=== PATIENT | female | born 1995 | race Caucasian/White ===

== ENCOUNTER 2016-05-29 18:46 | Emergency (ER) | payer OTHER ==
--- NOTE | 2016-05-29 19:50 | EDPHY ---
H & P Time Seen by Provider: 05/29/16 18:56 HPI/ROS: CHIEF COMPLAINT: right hand pain HISTORY OF PRESENT ILLNESS: 20-year-old female presents emergency department complaining of right hand pain. Patient reports a part of her metal bed frame fell onto her hand 4 hours prior to arrival. She has pain with movement and palpation. She is [id number], denies numbness or tingling in her hand. Patient reports no wrist pain, she says she had a scaphoid fracture on that same wrist 5 years ago. She denies other complaints. Smoking Status: Current every day smoker Physical Exam: GEN: Awake, alert, oriented, no acute distress RESP: nl resp effort MSK: Right hand with tenderness to palpation in thenar eminence, mild tenderness to UCL insertion. No snuffbox tenderness, no distal radius or ulnar styloid tenderness, cap refill less than 2 seconds, sensation intact to light touch, no swelling or ecchymosis. SKIN: No break in skin Constitutional: Initial Vital Signs Temperature (C) 37.2 C 05/29/16 18:47 Heart Rate 107 H 05/29/16 18:47 Respiratory Rate 15 05/29/16 18:47 Blood Pressure 111/74 05/29/16 18:47 O2 Sat (%) 94 05/29/16 18:47 O2 Delivery Mode Room Air Allergies/Adverse Reactions: amoxicillin Allergy (Verified 05/29/16 18:49) aripiprazole [From Abilify] Allergy (Verified 05/29/16 18:49) dorothy Allergy (Verified 05/29/16 18:49) sertraline HCl [From Zoloft] Allergy (Verified 05/29/16 18:49) ALMONDS Allergy (Uncoded 05/29/16 18:49) Home Medications: Medication Instructions Recorded Presique 05/29/16 Trileptal 05/29/16 traZODone 05/29/16 MDM/Departure - MDM Diagnostics: Right hand x-ray independently reviewed by -no fracture - Depart Disposition: Home, Routine, Self-Care Clinical Impression: Contusion of right hand Qualifiers: Encounter type: initial encounter Qualified Code(s): S60.221A - Contusion of right hand, initial encounter Condition: Good Instructions: Contusion in Adults (ED) Additional Instructions: Rest, ice, elevate, take 400mg of ibuprofen every 8 hours with food for 3-5 days as needed for pain and swelling. Wear Velcro wrist splint as needed for pain. Return to the emergency department for any numbness, tingling, discoloration of you limb or other concerns. Follow up with orthopedist for pain that is not improving in the next 7-10 days. Referrals: Vince Velarde MD [Medical Doctor] - As per Instructions (Orthopedist on-call)
[2016-05-29 20:08] VITALS: BP 101/63; PULSE 88; RESP 18; TEMP 97.7; O2SAT 96
== END 2016-05-29 20:08 | disposition home or self-care (01) ==
LOC: MERGE 18:46
DX: S60.221A Contusion of right hand, initial encounter (principal); F17.200 Nicotine dependence, unspecified, uncomplicated; W20.8XXA Other cause of strike by thrown, projected or falling object, initial encounter
CPT/HCPCS: L3807

== ENCOUNTER 2016-07-15 15:43 | Emergency (ER) | payer OTHER ==
--- NOTE | 2016-07-15 15:45 | EDPHY ---
H & P Time Seen by Provider: 07/15/16 15:44 HPI/ROS: CHIEF COMPLAINT: Under M1 hold, reportedly made suicidal statements HISTORY OF PRESENT ILLNESS: The patient is brought in on an M1 psychiatric hold after she reportedly made suicidal statements to her boyfriend. Patient states that she did make the statement however was not serious when she made them. The patient does have a history of bipolar mood disorder and has been off her medications for the past several days. The patient reportedly made statements that she wanted to hang herself. REVIEW OF SYSTEMS: A comprehensive 10 point review of systems is otherwise negative aside from elements mentioned in the history of present illness. Source: Patient Exam Limitations: No limitations - Medical/Surgical History Hx Asthma: No Hx Chronic Respiratory Disease: No Hx Diabetes: No Hx Cardiac Disease: No Hx Renal Disease: No Hx Cirrhosis: No Hx Alcoholism: No Hx HIV/AIDS: No Hx Splenectomy or Spleen Trauma: No Other PMH: BiPolar. Seizures, EPILEPSY. POTS. WISDOM - Social History Smoking Status: Current every day smoker - Physical Exam Exam: General Appearance: Alert, no distress Eyes: Pupils equal and round no pallor or injection ENT, Mouth: Mucous membranes moist Respiratory: There are no retractions, lungs are clear to auscultation Cardiovascular: Regular rate and rhythm Gastrointestinal: Abdomen is soft and nontender, no masses, bowel sounds normal Neurological: A&O, normal motor function, normal sensory exam, normal cranial nerves Skin: Warm and dry, no rashes Musculoskeletal: Neck is supple nontender Extremities: symmetrical, full range of motion Psychiatric: Logical, not tangential, denies suicidal ideation, cooperative, calm, alert and oriented x4 Constitutional: Initial Vital Signs Temperature (C) 37.4 C 07/15/16 15:57 Heart Rate 101 H 07/15/16 15:57 Respiratory Rate 16 07/15/16 15:57 Blood Pressure 114/78 07/15/16 15:57 O2 Sat (%) 97 07/15/16 15:57 O2 Delivery Mode Room Air Allergies/Adverse Reactions: amoxicillin Allergy (Verified 12/02/14 19:42) aripiprazole [From Abilify] Allergy (Verified 12/02/14 19:42) dorothy Allergy (Verified 12/02/14 19:42) sertraline HCl [From Zoloft] Allergy (Verified 12/02/14 19:42) ALMONDS Allergy (Uncoded 05/29/16 18:49) Home Medications: Medication Instructions Recorded Diazepam [Valium 5 MG (*)] 5 mg PO TID PRN #15 tab 12/02/14 Hydrocodone/Acetaminophen 1 each PO Q4-6PRN PRN #20 tablet 12/02/14 [Hydrocodon-Acetaminophen 5-325] Ondansetron Odt [Zofran Odt 4 mg 4 mg PO Q4 PRN #20 tab 12/02/14 (RX)] PRISTIQ 12/02/14 Trileptal 12/02/14 traZODONE 12/02/14 Presique 05/29/16 Trileptal 05/29/16 traZODone 05/29/16 Medical Decision Making ED Course/Re-evaluation: The patient presents to emergency department after she allegedly made suicidal statements to her boyfriend. The patient denies that she was serious about making those statements. The patient does contract for safety. The patient was evaluated by [facility] in the case was discussed with the on-call psychiatrist at [facility]. The patient will be discharged home and her hold has been vacated by the on-call psychiatrist. The case was discussed with the patient's mother who is comfortable with the plan and disposition. The patient will be discharged home under the care for roommate and was also comfortable with the plan and disposition. She is given customary return precautions. The patient is given outpatient resources with both [facility] as well as [place] outpatient psychiatric services. Differential Diagnosis: Differential diagnosis considered includes depression, decompensated bipolar mood disorder, psychosis, schizophrenia - Data Points Laboratory Results: Laboratory Results 07/15/16 15:52 07/15/16 15:52 07/15/16 07/15/16 07/15/16 16:17 15:52 15:52 WBC 6.36 10^3/uL 10^3/uL (3.80-9.50) RBC 5.28 10^6/uL 10^6/uL (4.18-5.33) Hgb 15.9 g/dL g/dL (12.6-16.3) Hct 46.6 % % (38.0-47.0) MCV 88.3 fL fL (81.5-99.8) MCH 30.1 pg pg (27.9-34.1) MCHC 34.1 g/dL g/dL (32.4-36.7) RDW 12.3 % % (11.5-15.2) Plt Count 252 10^3/uL 10^3/uL (150-400) MPV 9.1 fL fL (8.7-11.7) Neut % (Auto) 66.1 % % (39.3-74.2) Lymph % (Auto) 25.9 % % (15.0-45.0) [place] % (Auto) 7.2 % % (4.5-13.0) Eos % (Auto) 0.3 % L % (0.6-7.6) Baso % (Auto) 0.3 % % (0.3-1.7) Nucleat RBC Rel Count 0.0 % % (0.0-0.2) Absolute Neuts (auto) 4.20 10^3/uL 10^3/uL (1.70-6.50) Absolute Lymphs (auto) 1.65 10^3/uL 10^3/uL (1.00-3.00) Absolute Monos (auto) 0.46 10^3/uL 10^3/uL (0.30-0.80) Absolute Eos (auto) 0.02 10^3/uL L 10^3/uL (0.03-0.40) Absolute Basos (auto) 0.02 10^3/uL 10^3/uL (0.02-0.10) Absolute Nucleated RBC 0.00 10^3/uL 10^3/uL (0-0.01) Immature Gran % 0.2 % % (0.0-1.1) Immature Gran # 0.01 10^3/uL 10^3/uL (0.00-0.10) Turbidity Sodium 142 mEq/L mEq/L (134-144) Potassium 3.9 mEq/L mEq/L (3.5-5.2) Chloride 107 mEq/L mEq/L (97-110) Carbon Dioxide 24 mEq/l mEq/l (22-31) Anion Gap 11 mEq/L mEq/L (8-16) BUN 12 mg/dL mg/dL (7-23) Creatinine 0.7 mg/dL mg/dL (0.6-1.0) Estimated GFR > 60 Glucose 106 mg/dL H mg/dL (70-100) Calcium 10.0 mg/dL mg/dL (8.5-10.4) Urine Opiates Screen NEGATIVE (NEGATIVE) Urine Barbiturates NEGATIVE (NEGATIVE) Ur Phencyclidine Scrn NEGATIVE (NEGATIVE) Ur Amphetamine Screen NEGATIVE (NEGATIVE) U Benzodiazepines Scrn NEGATIVE (NEGATIVE) Urine Cocaine Screen NEGATIVE (NEGATIVE) U Marijuana (THC) Screen NEGATIVE (NEGATIVE) Ethyl Alcohol 07/15/16 15:52 WBC RBC Hgb Hct MCV MCH MCHC RDW Plt Count MPV Neut % (Auto) Lymph % (Auto) [place] % (Auto) Eos % (Auto) Baso % (Auto) Nucleat RBC Rel Count Absolute Neuts (auto) Absolute Lymphs (auto) Absolute Monos (auto) Absolute Eos (auto) Absolute Basos (auto) Absolute Nucleated RBC Immature Gran % Immature Gran # Turbidity Cancelled Sodium Cancelled Potassium Cancelled Chloride Cancelled Carbon Dioxide Cancelled Anion Gap Cancelled BUN Cancelled Creatinine Cancelled Estimated GFR Cancelled Glucose Cancelled Calcium Cancelled Urine Opiates Screen Urine Barbiturates Ur Phencyclidine Scrn Ur Amphetamine Screen U Benzodiazepines Scrn Urine Cocaine Screen U Marijuana (THC) Screen Ethyl Alcohol < 10 mg/dL mg/dL (0-10) Departure - Departure Disposition: Home, Routine, Self-Care Clinical Impression: Bipolar 1 disorder Condition: Good Instructions: Bipolar Disorder (ED) Additional Instructions: 1. Please follow-up with the mental health resources provided in the ED today. 2. [facility] does operate a 24/7 psychiatric crisis unit located at [address] [place] [address]. The telephone number for the 24 hour crisis center is [phone]. 3. Please return to the ED if you are feeling suicidal, having thoughts of harming yourself/others or should you feel unsafe or have worsening symptoms. Referrals: [facility],. [Clinic] - As per Instructions
[2016-07-15 15:59] VITALS: RESP 16
[2016-07-15 16:22] LABS: % IMMATURE GRANULYOCYTES 0.2 % (0.0-1.1); ABSOLUTE IMMATURE GRANULOCYTES 0.01 10^3/uL (0.00-0.10); ADD DIFF? NO; ADD MORPH? NO; ADD SCAN? NO; ATYPICAL LYMPHOCYTE FLAG 20 (0-99); FRAGMENT RBC FLAG 0 (0-99); HEMATOCRIT 46.6 % (38.0-47.0); HEMOGLOBIN 15.9 g/dL (12.6-16.3); LEFT SHIFT FLG 0 (0-99); LIPEMIA HEMOLYSIS FLAG 90 (0-99); MEAN CELL HEMOGLOBIN 30.1 pg (27.9-34.1); MEAN CELL HEMOGLOBIN CONCENTR. 34.1 g/dL (32.4-36.7); MEAN CELL VOLUME 88.3 fL (81.5-99.8); MEAN PLATELET VOLUME 9.1 fL (8.7-11.7); PLATELET CLUMPS FLAG 10 (0-99); PLATELET COUNT 252 10^3/uL (150-400); RED BLOOD CELL COUNT 5.28 10^6/uL (4.18-5.33); RED CELL DISTRIBUTION WIDTH 12.3 % (11.5-15.2)
[2016-07-15 16:24] LABS: ETHANOL SERUM < 10 mg/dL (0-10)
[2016-07-15 16:26] LABS: ANION GAP 11 mEq/L (8-16); CARBON DIOXIDE 24 mEq/l (22-31); CHLORIDE 107 mEq/L (97-110); CREATININE 0.7 mg/dL (0.6-1.0); GLOMERULAR FILTRATION RATE > 60; GLUCOSE 106 mg/dL (70-100); POTASSIUM 3.9 mEq/L (3.5-5.2); SODIUM 142 mEq/L (134-144)
[2016-07-15 19:00] VITALS: BP 112/72; PULSE 86; TEMP 99.5; O2SAT 95
== END 2016-07-15 19:00 | disposition home or self-care (01) ==
DX: F31.9 Bipolar disorder, unspecified (principal); F17.200 Nicotine dependence, unspecified, uncomplicated
CPT/HCPCS: 80305; G0480

== ENCOUNTER 2018-02-01 14:05 | Emergency (ER) | payer OTHER ==
[2018-02-01 14:12] VITALS: BP 111/76
--- NOTE | 2018-02-01 14:20 | EDPHY ---
H & P Stated Complaint: L 5TH DIGIT INJ/CAUGHT IN OVEN DOOR AT WORK Time Seen by Provider: 02/01/18 14:19 HPI/ROS: HPI: This is a 22-year-old female who presents with Chief Complaint: L 5TH DIGIT INJ/CAUGHT IN OVEN DOOR AT WORK Location: Left little finger Quality: Injury Duration: Prior to arrival Signs and Symptoms: No bleeding, no radiation, no numbness, no weakness, no tingling, no incontinence, + decreased range of motion, + swelling, + pain, no fever Timing: Acute, constant Severity: Moderate Context: Patient was at work at a [employer] when she accidentally slammed her left little finger into the oven door. She reports that she felt immediate , constant, moderate pain that radiated toward the tip of her finger. She notes that it is swollen and bruised at tip. She complains of decreased range of motion at the tip of the finger. She is right-hand dominant. Denies paresthesias, weakness. Modifying Factors: No ice or [id number] medications taken Comment: ROS: A comprehensive 10 system review of systems is otherwise negative aside from elements mentioned in the history of present illness. MEDICAL/SURGICAL/SOCIAL HISTORY: Medical history: BiPolar Seizures, EPILEPSY POTS WISDOM PANCREATIC ENZYME DEFICIENCY Surgical history: Denies Social history: Smoker CONSTITUTIONAL: Polite and cooperative, young adult white female, awake and alert, no obvious distress HEENT: Atraumatic and normocephalic. NECK: supple EXTREMITIES: 2/2 pulses, strength 5/5, left little finger at the DI P joint shows ecchymosis and decreased range of motion with mild swelling. PIP/MCP flexion/extension intact with good light touch sensation. no deformities, no clubbing, no cyanosis or edema. NEUROLOGICAL: no focal neuro deficits. GCS 15. Light touch sensation intact. SKIN: Warm and dry, no erythema. no rash. Good capillary refill. Source: Patient Exam Limitations: No limitations - Personal History LMP (Females 10-55): 22-28 Days Ago Current Tetanus Diphtheria and Acellular Pertussis (TDAP): Yes - Medical/Surgical History Hx Asthma: No Hx Chronic Respiratory Disease: No Hx Diabetes: No Hx Cardiac Disease: No Hx Renal Disease: No Hx Cirrhosis: No Hx Alcoholism: No Hx HIV/AIDS: No Hx Splenectomy or Spleen Trauma: No Other PMH: BiPolar. Seizures, EPILEPSY. POTS. WISDOM. PANCREATIC ENZYME DEFICIENCY - Social History Smoking Status: Current every day smoker Constitutional: Initial Vital Signs Temperature (C) 37.2 C 02/01/18 14:09 Heart Rate 98 02/01/18 14:09 Respiratory Rate 18 02/01/18 14:09 Blood Pressure 111/76 02/01/18 14:09 O2 Sat (%) 96 02/01/18 14:09 O2 Delivery Mode Room Air Allergies/Adverse Reactions: amoxicillin Allergy (Verified 02/01/18 14:08) aripiprazole [From Abilify] Allergy (Verified 02/01/18 14:08) dorothy Allergy (Verified 02/01/18 14:08) sertraline HCl [From Zoloft] Allergy (Verified 02/01/18 14:08) ALMONDS Allergy (Uncoded 05/29/16 18:49) Home Medications: Medication Instructions Recorded Ondansetron Odt [Zofran Odt 4 mg 4 mg PO Q4 PRN #20 tab 12/02/14 (RX)] PRISTIQ 12/02/14 Creon 12 (*) 02/01/18 Medical Decision Making - Diagnostics Imaging Results: Imaging Impressions Finger X-Ray 02/01/18 14:12 Impression: Negative radiographs of the left fifth finger. Procedures: Procedure: Splint placement. A left pinky aluminum cage finger splint was applied. After application of the splint I returned and re-examined the patient. The splint was adequately immobilizing the joint and distal to the splint the patient's circulation and sensation was intact. ED Course/Re-evaluation: Left hand x-ray my read shows no acute fracture, dislocation. Placed in aluminum cage finger splint for comfort, orthopedic Hand follow-up if symptoms persist No signs of neurovascular compromise/tenting of skin/compartment syndrome/ extremities and joints examined above and below area of concern and are neurovascularly intact. This patient was seen under the supervision of my secondary supervising physician. I evaluated care for this patient independently. Discussed this patient with Dr. Wallace. Differential Diagnosis: Differential diagnosis includes but is not limited to tendon injury, nerve injury, finger fracture. Departure - Departure Disposition: Home, Routine, Self-Care Clinical Impression: Suspected fracture of bone Sprain of finger of left hand Qualifiers: Encounter type: initial encounter Finger: little finger Sprain of finger site: interphalangeal joint Qualified Code(s): S63.637A - Sprain of interphalangeal joint of left little finger, initial encounter Condition: Good Instructions: Finger Fracture (ED), Finger Sprain (ED) Additional Instructions: Wear the splint until pain free or seen by Orthopedics. Take Tylenol 650 mg every 4 hours and/or Ibuprofen 600 mg every 8 hours with food as needed for pain. Apply ice for 30 minutes at a time; 2-3 times per day for the next 1-2 days. Follow up with Orthopedics in 7-10 days if symptoms persist at which time they will evaluate and recommend with you if conservative management versus further imaging is indicated. The x-rays obtained in the emergency department today demonstrate no evidence of an obvious fracture. Sometimes fractures are not obvious on the initial set of x-rays performed in the ED. For this reason, you should have repeat x-rays performed in 7-10 days if you are having any pain exclude the possibility of an occult fracture. Referrals: Jacinto Grande MD [Medical Doctor] - As per Instructions
== END 2018-02-01 15:03 | disposition home or self-care (01) ==
DX: S63.637A Sprain of interphalangeal joint of left little finger, initial encounter (principal); F17.200 Nicotine dependence, unspecified, uncomplicated
CPT/HCPCS: L3925